=== PATIENT | male | born 1990 | race Caucasian/White ===

== ENCOUNTER → 2018-08-02 | Outpatient (CLI) | payer OTHER ==
[~2018-08-02] MED LIST: ALPR0.5T PO
--- NOTE | 2018-08-02 10:12 | Diagnostic Imaging Report ---
INDICATION: Hand pain after punching a sink last night. TECHNIQUE: Three views of the right hand. CORRELATION STUDY: None. FINDINGS: There is a comminuted fracture in the neck and head of the distal fifth metacarpal. The articular surface appears to be maintained. There is slight volar displacement and angulation of the main distal fracture fragment. Slight impaction is present. The remaining structures are otherwise intact. There is prominent soft tissue swelling at the area of fracture. IMPRESSION: 1. Comminuted mildly displaced and angulated distal fifth metacarpal fracture associated with soft tissue swelling. 2. The report was called to [place] the office of Dr. Ordonez by QUEENIE@10:11 AM. Dictated by: Dictated on workstation # [id number]
--- NOTE | 2018-08-02 12:56 | Diagnostic Imaging Report ---
INDICATION: Hand and wrist pain after punching a sink last night. TECHNIQUE: Three views of the right wrist. CORRELATION STUDY: None. FINDINGS: The osseous structures of the wrist have an unremarkable appearance. Alignment is anatomic. There is no acute bony abnormality. There is limited visualization of a comminuted fracture involving the distal fifth metacarpal. Adjacent soft tissue swelling present. IMPRESSION: 1. Negative examination of the wrist. 2. Partial visualization of comminuted displaced and angulated distal fifth metacarpal fracture. Dictated on workstation # [id number]
== END ==
LOC: RAD 08:53
PROVIDERS: ATTEND Family Medicine
DX: S62.336A Displaced fracture of neck of fifth metacarpal bone, right hand, initial encounter for closed fracture (principal); W22.09XA Striking against other stationary object, initial encounter
CPT/HCPCS: 73110; 73130

== ENCOUNTER 2020-01-17 15:08 | Outpatient (CLI) | payer OTHER | END 2020-01-17 15:18 | disposition home or self-care (01) | LOC: SLEEP 15:08 | PROVIDERS: ATTEND Family Medicine | DX: G47.33 Obstructive sleep apnea (adult) (pediatric) (principal); N45.1 Epididymitis ==